=== PATIENT | male | born 1955 | race Caucasian/White ===

== ENCOUNTER 2024-11-28 23:13 | Emergency (ER) | payer MEDICARE ==
[~2024-11-28] VITALS: Ht 177.8 cm; Wt 73.0 kg
[2024-11-28 23:24] VITALS: BP 111/79; PULSE 79; RESP 16; TEMP 37.2; O2SAT 98
== END 2024-11-29 02:20 | disposition home or self-care (01) ==
LOC: ER 11-29 00:13
DX: M79.605 Pain in left leg (principal); M79.604 Pain in right leg; I10 Essential (primary) hypertension; J45.909 Unspecified asthma, uncomplicated; Z59.00 Homelessness unspecified; Z91.041 Radiographic dye allergy status
CPT/HCPCS: 99281